=== PATIENT | male | born 1955 | race Caucasian/White ===

== ENCOUNTER 2019-03-29 18:02 | Emergency (ER) | payer OTHER ==
[~2019-03-29] VITALS: Ht 170.2 cm; Wt 85.8 kg
[~2019-03-29 18:02] MED LIST: ASPI-817 PO
[2019-03-29 18:20] VITALS: Ht 170.2 cm; Wt 85.8 kg
--- NOTE | 2019-03-29 19:43 | ERD ---
ER Documentation Chief Complaint Chief Complaint head pain/pressure;numbness/pain of timothy legs & arms x couples of months HPI 63-year-old male with no significant prior medical history other than a remote appendectomy, chronic cigarette smoker presents to the ED with multiple complaints. Over the last several months he has been experiencing intermittent headache which is describes as pressure in the back of his head with numbness and tingling to his entire body. Occasional, unprovoked diaphoresis. Admits to bouts of anxiety but denies depression or thoughts of self-harm. No chest pain, palpitations, shortness of breath or cough. Denies abdominal pain or back pain. No nausea or vomiting. Denies dysuria, polyuria hematuria. No anorexia, night sweats, fevers or chills. ROS All systems reviewed and are negative except as per history of present illness. Medications Home Meds Reported Medications Acetaminophen* (Acetaminophen*) 500 MG Extra Strength Tablet, 500 MG PO Q4H PRN for PAIN AND OR ELEVATED TEMP, TAB 03/29/19 Discontinued Reported Medications Aspirin* (Aspirin* EC) 81 Mg Tablet.dr, 81 MG PO DAILY, TAB 07/23/14 Allergies Allergies: Coded Allergies: No Known Allergy (Unverified , 03/29/19) PMhx/Soc History of Surgery: Yes (APPY ) Anesthesia Reaction: No Hx Neurological Disorder: No Hx Respiratory Disorders: No Hx Cardiac Disorders: No Hx Psychiatric Problems: No Hx Miscellaneous Medical Probl: No Hx Alcohol Use: Yes (OCASSIONAL ) Hx Substance Use: No Hx Tobacco Use: Yes Smoking Status: Current some day smoker Physical Exam Vitals Vital Signs Date Temp Pulse Resp B/P (MAP) Pulse Ox O2 O2 Flow FiO2 Time Delivery Rate 03/29/19 58 16 154/80 98 Room Air 19:01 (104) 03/29/19 97.8 67 20 131/63 97 18:20 (85) Physical Exam Const: No acute distress Head: Atraumatic Eyes: Normal Conjunctiva ENT: Normal External Ears, Nose and Mouth. Neck: Full range of motion. No meningismus. Resp: Clear to auscultation bilaterally Cardio: Regular rate and rhythm, no murmurs Abd: Soft, non tender, non distended. Normal bowel sounds Skin: No petechiae or rashes Back: No midline or flank tenderness Ext: No cyanosis, or edema Neur: Awake and alert Psych: Normal Mood and Affect Result Diagram: 03/29/19191203/29/191912 Results 24 hrs Laboratory Tests Test 03/29/19 19:13 White Blood Count 6.3 10^3/ul Red Blood Count 5.55 10^6/ul Hemoglobin 17.0 g/dl Hematocrit 51.5 % Mean Corpuscular Volume 92.8 fl Mean Corpuscular Hemoglobin 30.6 pg Mean Corpuscular Hemoglobin Concent 33.0 g/dl Red Cell Distribution Width 13.6 % Platelet Count 233 10^3/UL Mean Platelet Volume 9.1 fl Immature Granulocytes % 0.300 % Neutrophils % 60.8 % Lymphocytes % 29.1 % Monocytes % 7.6 % Eosinophils % 1.4 % Basophils % 0.8 % Nucleated Red Blood Cells % 0.0 /100WBC Immature Granulocytes # 0.020 10^3/ul Neutrophils # 3.8 10^3/ul Lymphocytes # 1.8 10^3/ul Monocytes # 0.5 10^3/ul Eosinophils # 0.1 10^3/ul Basophils # 0.1 10^3/ul Nucleated Red Blood Cells # 0.0 10^3/ul Urine Color YELLOW Urine Clarity CLEAR Urine pH 7.0 Urine Specific Gary 1.010 Urine Ketones NEGATIVE mg/dL Urine Nitrite NEGATIVE mg/dL Urine Bilirubin NEGATIVE mg/dL Urine Urobilinogen NEGATIVE mg/dL Urine Leukocyte Esterase NEGATIVE Claudia/ul Urine Microscopic RBC 1 /HPF Urine Microscopic WBC 0 /HPF Urine Hemoglobin 1+ mg/dL Urine Glucose NEGATIVE mg/dL Urine Total Protein NEGATIVE mg/dl Sodium Level 141 mmol/L Potassium Level 4.5 mmol/L Chloride Level 103 mmol/L Carbon Dioxide Level 33 mmol/L Anion Gap 5 Blood Urea Nitrogen 21 mg/dl Creatinine 1.19 mg/dl Est Glomerular Filtrat Rate mL/min > 60 mL/min Glucose Level 99 mg/dl Calcium Level 8.9 mg/dl Total Bilirubin 0.3 mg/dl Direct Bilirubin 0.00 mg/dl Indirect Bilirubin 0.3 mg/dl Aspartate Amino Transf (AST/SGOT) 22 IU/L Alanine Aminotransferase (ALT/SGPT) 26 IU/L Alkaline Phosphatase 70 IU/L Troponin I < 0.012 ng/ml Total Protein 7.8 g/dl Albumin 4.1 g/dl Globulin 3.70 g/dl Albumin/Globulin Ratio 1.10 Procedures/MDM DOCUMENTS REVIEWED: ED nurse, prior ED visit in 2013 for similar complaints EKG: Time: 19:52. There is bradycardia. Ventricular rate 53. Normal RI QRS. Left anterior hemiblock. No acute ST segment elevation or depression. No ectopy. My Interpretation IMAGING: PROCEDURE: CT Brain without contrast. CLINICAL INDICATION: Headache TECHNIQUE: A CT of the brain was performed on a multi-slice CT scanner utilizing axial imaging from the skull base through the vertex without IV contrast. Coronal and sagittal re-formations were created. Images were reviewed on a PACS workstation. The CTDIvol is 39 mGy and the DLP is 634 mGycm. DICOM images are available. 3-D reconstructions were not performed. One or more of the following dose reduction techniques were utilized: 1.) Automated exposure control 2.) Adjustment of the mA +/- kV according to patient's size 3.) Use of iterative reconstruction technique. COMPARISON: None FINDINGS: The basilar cisterns, ventricular spaces and sulcal spaces are normal in size and configuration. There is no midline shift or other evidence of mass effect. There are no abnormal foci of increased attenuation in the brain parenchyma. No abnormal foci of diminished attenuation are present. Bone-windows show no lytic or blastic calvarial lesions. The visualized para nasal sinuses and mastoid air cells are clear. IMPRESSION: 1. Unremarkable unenhanced computed tomograms of the head without evidence of intracranial hemorrhage, mass, or acute infarct. RPTAT:AAJJ Physician Sola Date Time Electronically viewed and signed by Physician Sola on 03/29/2019 20:38 GW/ MEDICAL DECISION MAKIN-year-old male with no significant prior medical history other than a remote appendectomy, chronic cigarette smoker presents to the ED with multiple complaints losing headache, body aches/numbness and anxiety. The absence of signs of acute, serious illness patient is stable for discharge with precautionary instructions and outpatient follow-up as counseled. Counseled patient and family regarding diagnostic workup, diagnosis and need for followup. Understands to return to ED if symptoms recur, worsen or any other co ncerns. Smoking Cessation Therapy: Pt. was lectured for greater than 3 minutes on the health risks of continued smoking and the benefits of cessation. Departure Diagnosis: Primary Impression: Multiple complaints Additional Impressions: Numbness Anxiety Cigarette smoker Condition: Stable INGRID BRADSHAW MD Mar 29, 2019 19:43
[2019-03-29] MEDS ORDERED: ACET-141 PO (20:52)
[2019-03-29 22:00] VITALS: BP 159/82; PULSE 58; RESP 14
== END 2019-03-29 22:00 | disposition home or self-care (01) ==
LOC: E/R 18:02
DX: M79.605 Pain in left leg (principal); R20.0 Anesthesia of skin; F41.9 Anxiety disorder, unspecified; M79.604 Pain in right leg; F17.210 Nicotine dependence, cigarettes, uncomplicated; R40.2142 Coma scale, eyes open, spontaneous, at arrival to emergency department; R40.2362 Coma scale, best motor response, obeys commands, at arrival to emergency department; R40.2252 Coma scale, best verbal response, oriented, at arrival to emergency department
CPT/HCPCS: 70450; 80053; 81001; 84484; 85025; 93005; Z7502